=== PATIENT | male | born 1960 | race Caucasian/White ===

== ENCOUNTER 2019-03-21 08:03 | Day surgery (SDC) | payer OTHER ==
[2019-03-17 15:14] VITALS: BMI 23.1
[2019-03-21 10:09] VITALS: TEMP 97.6
[2019-03-21 10:28] VITALS: BP 110/62; PULSE 76
--- NOTE | 2019-03-25 11:30 | PATH ---
Surgical Pathology Report Patient Name: DOYLE KENNEDY [facility]. Rec. #: [id number] /Age/Gender: 1960 (Age: 58) / M Account: [id number] Location: [facility] Taken: 03/21/2019 Received: 03/21/2019 Reported: 03/25/2019 Physicians: Franky Bryant M.D. Specimen(s) Received A: SECOND PORTION DUODENUM B: ANTRUM C: ESOPHAGUS Clinical History Dysphagia. Postoperative diagnosis: Mild gastritis Final Diagnosis A. THE SECOND PORTION OF DUODENUM, BIOPSY: DUODENAL MUCOSA WITH NO PATHOLOGIC FINDINGS. B. GASTRIC ANTRUM, BIOPSY: MILD CHRONIC GASTRITIS. IMMUNOSTAIN IS NEGATIVE FOR H. PYLORI ORGANISMS. C. ESOPHAGUS, BIOPSY: ESOPHAGEAL (SQUAMOUS) MUCOSA WITH NO PATHOLOGIC FINDINGS. NO COLUMNAR EPITHELIUM/INTESTINAL METAPLASIA IS IDENTIFIED. Electronically Signed Ginette Hubbard M.D. Gross Description A. Received in formalin, labeled "second portion duodenum" are 2 ortez, irregular portions of soft tissue each measuring 0.3 cm. in greatest dimension. The specimens are submitted in toto in one cassette. B. Received in formalin, labeled "gastric antrum" are 2 ortez, irregular portions of soft tissue measuring 0.2 cm and 0.3 cm. in greatest dimension. The specimens are submitted in toto in one cassette. C. Received in formalin, labeled "esophagus" are 2 ortez, irregular portions of soft tissue measuring 0.1 cm and 0.2 cm. in greatest dimension. The specimens are submitted in toto in one cassette. AE/03/22/2019 ebram/03/22/2019
== END 2019-03-21 10:30 | disposition home or self-care (01) ==
LOC: FASU-ENDO 08:03
PROVIDERS: ATTEND Internal Medicine Gastroenterology
PROC: 0DB68ZX Excision of Stomach, Via Natural or Artificial Opening Endoscopic, Diagnostic (ICD-10-PCS; 2019-03-21)
PROC: 0DB48ZX Excision of Esophagogastric Junction, Via Natural or Artificial Opening Endoscopic, Diagnostic (ICD-10-PCS; 2019-03-21)
PROC: 0D748DZ Dilation of Esophagogastric Junction with Intraluminal Device, Via Natural or Artificial Opening Endoscopic (ICD-10-PCS; 2019-03-21)
PROC: 0DB98ZX Excision of Duodenum, Via Natural or Artificial Opening Endoscopic, Diagnostic (ICD-10-PCS; principal; 2019-03-21 09:35)
DX: K29.50 Unspecified chronic gastritis without bleeding (principal); R13.10 Dysphagia, unspecified
CPT/HCPCS: 88305-TC; 88342-TC

== ENCOUNTER 2019-06-16 08:48 | Day surgery (SDC) | payer OTHER ==
[2019-06-09 16:29] VITALS: BMI 23.0
--- NOTE | 2019-06-16 07:34 | OP ---
Operative Note - Note: Operative Date: 06/16/19 Pre-Operative Diagnosis: Left medial and lateral meniscal tears Operation: Left partial medial and lateral meniscectomies Post-Operative Diagnosis: Same as Pre-op Surgeon: Beka Del Cid Tool Grinder: Jenae Real Anesthesiologist/WIND ENERGY ENGINEER: Bud Prescott Anesthesia: General Operative Report Dictated: Yes
[2019-06-16] MEDS ORDERED: MIDAZOLAM HCL 2 MG/2 ML SINGLE DOSE VIAL ONE ×2 (09:23→10:42)
[2019-06-16] MEDS ORDERED: LIDOCAINE HCL/PF 2% SDV 5ML VIAL ONE ×2 (09:23→10:55)
[2019-06-16] MEDS ORDERED: ceFAZolin SODIUM 1 GM VIAL ONE ×2 (09:23→10:55)
[2019-06-16] MEDS ORDERED: ONDANSETRON 4 MG/2 ML VIAL ONE ×2 (09:23→10:55)
[2019-06-16] MEDS ORDERED: SODIUM CHLORIDE 0.9% P/F 10 ML VIAL IJ ONE (09:23)
[2019-06-16] MEDS ORDERED: DEXAMETHASONE SOD PHOSPHATE 4 MG/1 ML VIAL ONE ×2 (09:23→10:55)
[2019-06-16] MEDS ORDERED: PROPOFOL 20 ML ONE ×3 (09:57→10:46)
[2019-06-16] MEDS ORDERED: KETOROLAC TROMETHAMINE 30 MG/1 ML VIAL ONE ×2 (10:09→10:55)
[2019-06-16] MEDS ORDERED: SUCCINYLCHOLINE CHLORIDE 200 MG/10 ML SYRINGE ONE (10:46)
[2019-06-16] MEDS ORDERED: LIDOCAINE HCL 2% JELLY (5 ML/TUBE) ONE (10:55)
[2019-06-16] MEDS ORDERED: BUPIVACAINE HCL 0.25% 125 MG/50 ML VIAL ONE (11:04)
[2019-06-16] MEDS ORDERED: DESFLURANE GAS 240 ML BOTTLE IH ONE (11:15)
[2019-06-16] MEDS ORDERED: BUPIVACAINE HCL/PF 0.25% (2.5MG/ML) 10 ML VIAL IJ ONE (11:30)
[2019-06-16] MEDS ORDERED: ONDANSETRON 4 MG/2 ML VIAL IVPUSH PRN (11:48)
[2019-06-16] MEDS ORDERED: oxyCODONE HCL 5 MG TABLET PO PRN ×2 (11:48)
[2019-06-16] MEDS ORDERED: PROMETHAZINE HCL 25 MG/1 ML VIAL IVPUSH PRN (11:48)
[2019-06-16 13:00] VITALS: TEMP 97.6
[2019-06-16 13:28] VITALS: BP 124/76; PULSE 74
--- NOTE | 2019-07-03 18:34 | OP ---
DATE OF OPERATION: 06/09/2019 PREOPERATIVE DIAGNOSIS: Left medial and lateral meniscal tears. POSTOPERATIVE DIAGNOSIS: Left medial and lateral meniscal tears. PROCEDURE: Left knee arthroscopy with partial medial and lateral meniscectomy. SURGEON: Beka Del Cid MD MARKET SALES MANAGER: Jenae Real, physician's congressional assistant, whose skillful assistance was necessary for the safe and timely performance of this procedure. INDICATIONS: This is a pleasant 58-year-old gentleman, who is suffering from knee pain. MRI demonstrated meniscal tear. Treatment options including nonoperative versus operative management was reviewed. Operative risks were reviewed in detail, including bleeding, infection, neurovascular injury, need for further surgery, postoperative pain and stiffness, progression of osteoarthritis. We discussed medical risks such as heart attack, stroke, DVT, PE, and . I addressed the use of perioperative antibiotic and DVT prophylaxis. I reviewed the postoperative rehabilitation protocol. I addressed all the patient's questions and concerns. He voiced understanding and elected to proceed. PROCEDURE: The patient was brought to the operating room, where general anesthetic was administered. The left lower extremity was then prepped and draped in the usual sterile fashion. A preoperative dose of antibiotics was given and the usual timeout procedure was performed. The portals were then marked out and injected subcutaneously with 0.25% Marcaine. A lateral portal was now established using an 11 blade. The arthroscope was now passed into the joint through the lateral portal. Examination of the patellofemoral joint demonstrated some moderate partial thickness articular wear which extended down, also on the lateral facet. The arthroscope was passed into the notch, where the ACL and PCL were visualized to be intact. A medial portal was now established under the spinal needle location. The medial compartment was examined. There was moderate partial thickness articular cartilage loss on the femoral and tibial sides. The meniscus was noted to have a complex tear. Utilizing a combination of meniscal biter and shaver, this was debrided down to a stable base. The arthroscope was now passed into the lateral compartment. Here, some tearing was noted in the body of the lateral meniscus. There was partial-thickness cartilage loss in both the femoral and tibial surfaces here as well. Again, here the meniscus was debrided utilizing the meniscal biters as well as a shaver. At this point, the excess fluid was withdrawn from the joint. The portals were sutured using 3-0 nylon. Sterile dressings were placed. The patient was extubated and transferred to recovery room in stable condition. Davey MADRIGAL/[id number]
== END 2019-06-16 13:32 | disposition home or self-care (01) ==
LOC: FASU 08:48
PROVIDERS: ATTEND Orthopaedic Surgery Sports Medicine
PROC: 0SBD4ZZ Excision of Left Knee Joint, Percutaneous Endoscopic Approach (ICD-10-PCS; 2019-06-16)
PROC: 0SBD4ZZ Excision of Left Knee Joint, Percutaneous Endoscopic Approach (ICD-10-PCS; principal; 2019-06-16 11:09)
DX: S83.242A Other tear of medial meniscus, current injury, left knee, initial encounter (principal); S83.282A Other tear of lateral meniscus, current injury, left knee, initial encounter; X58.XXXA Exposure to other specified factors, initial encounter; Y93.9 Activity, unspecified; Y92.9 Unspecified place or not applicable
CPT/HCPCS: 94760

== ENCOUNTER 2020-10-26 15:35 | Emergency (ER) | payer OTHER ==
[2020-10-27 11:15] LABS: SARS-CoV-2 NAA Not Detected (Not Detected)
== END 2020-10-26 16:33 | disposition home or self-care (01) ==
LOC: JVIRT 15:35
DX: Z20.822 Contact with and (suspected) exposure to COVID-19 (principal)
CPT/HCPCS: C9803; G2251-GT; Q3014-GT; U0003; U0005